=== PATIENT | female | born 1955 | race Caucasian/White ===

== ENCOUNTER 2017-09-13 05:03 | Outpatient (CLI) | payer BC | END 2017-09-13 23:59 | disposition home or self-care (01) | LOC: DIABETIC 05:03 | PROVIDERS: ATTEND Specialist | DX: E10.9 Type 1 diabetes mellitus without complications (principal) | CPT/HCPCS: G0108 ==

== ENCOUNTER 2017-12-17 04:42 | Outpatient (CLI) | payer BC | END 2017-12-17 23:59 | disposition home or self-care (01) | LOC: DIABETIC 04:42 | PROVIDERS: ATTEND Specialist | DX: E10.9 Type 1 diabetes mellitus without complications (principal) | CPT/HCPCS: G0108 ==

== ENCOUNTER 2018-03-22 09:31 | Outpatient (CLI) | payer BC | END 2018-03-22 23:59 | disposition home or self-care (01) | LOC: DIABETIC 09:31 | PROVIDERS: ATTEND Specialist | DX: E10.9 Type 1 diabetes mellitus without complications (principal) | CPT/HCPCS: G0108 ==

== ENCOUNTER 2018-06-21 00:42 | Outpatient (CLI) | payer BC | END 2018-06-21 23:59 | disposition home or self-care (01) | LOC: DIABETIC 00:42 | PROVIDERS: ATTEND Specialist | DX: E10.9 Type 1 diabetes mellitus without complications (principal) | CPT/HCPCS: G0108 ==

== ENCOUNTER 2018-09-27 03:10 | Outpatient (CLI) | payer BC | END 2018-09-27 23:59 | disposition home or self-care (01) | LOC: DIABETIC 03:10 | PROVIDERS: ATTEND Specialist | DX: E10.9 Type 1 diabetes mellitus without complications (principal); Z79.4 Long term (current) use of insulin | CPT/HCPCS: G0108 ==

== ENCOUNTER 2018-12-30 04:57 | Outpatient (CLI) | payer BC | END 2018-12-30 23:59 | disposition home or self-care (01) | LOC: DIABETIC 04:57 | PROVIDERS: ATTEND Specialist | DX: E10.65 Type 1 diabetes mellitus with hyperglycemia (principal); Z79.4 Long term (current) use of insulin | CPT/HCPCS: G0108 ==

== ENCOUNTER 2019-05-02 02:06 | Outpatient (CLI) | payer BC | END 2019-05-02 23:59 | disposition home or self-care (01) | LOC: DIABETIC 02:06 | PROVIDERS: ATTEND Specialist | DX: E10.65 Type 1 diabetes mellitus with hyperglycemia (principal); Z79.4 Long term (current) use of insulin; Z79.899 Other long term (current) drug therapy | CPT/HCPCS: G0108 ==

== ENCOUNTER 2019-08-02 03:18 | Outpatient (CLI) | payer BC | END 2019-08-02 23:59 | disposition home or self-care (01) | LOC: DIABETIC 03:18 | PROVIDERS: ATTEND Specialist | DX: E10.65 Type 1 diabetes mellitus with hyperglycemia (principal); Z79.4 Long term (current) use of insulin; Z79.899 Other long term (current) drug therapy | CPT/HCPCS: G0108 ==

== ENCOUNTER 2019-10-11 01:46 | Outpatient (CLI) | payer BC | END 2019-10-11 23:59 | disposition home or self-care (01) | LOC: DIABETIC 01:46 | PROVIDERS: ATTEND Specialist | DX: E10.9 Type 1 diabetes mellitus without complications (principal) | CPT/HCPCS: G0108 ==